=== PATIENT | male | born 1965 ===

== ENCOUNTER 2023-05-25 05:51 | Day surgery (SDC) | payer OTHER ==
[~2023-05-25] VITALS: Ht 167.6 cm; Wt 68.0 kg
[2023-05-25] MEDS ORDERED: KETO10TA2 PO (08:51)
[2023-05-25] MEDS ORDERED: TYLENOL ARTHRI650 MG PO (08:51)
[2023-05-25] MEDS ORDERED: TRAMADOL HCL50 MG PO (08:51)
[2023-05-25] MEDS ORDERED: MIRALAX17 GM PO (08:51)
== END 2023-05-25 14:00 | disposition home or self-care (01) ==
LOC: CIR.AMB 05:51
PROVIDERS: ATTEND Surgery
DX: K40.90 Unilateral inguinal hernia, without obstruction or gangrene, not specified as recurrent (principal); K42.0 Umbilical hernia with obstruction, without gangrene; Z20.822 Contact with and (suspected) exposure to COVID-19; I10 Essential (primary) hypertension; R10.9 Unspecified abdominal pain
CPT/HCPCS: 49650; 49592; C1781